=== PATIENT | female | born 1985 | race Caucasian/White ===

== ENCOUNTER 2017-11-09 11:55 | Emergency (ER) | payer OTHER ==
[~2017-11-09] VITALS: Ht 170.2 cm; Wt 88.7 kg
[2017-11-09] MEDS ORDERED: CEPH500 PO (14:41)
[2017-11-09] MEDS ORDERED: Bactrim Ds Tab1 EACH PO (14:41)
== END 2017-11-09 14:48 | disposition home or self-care (01) ==
LOC: ER 11:55
DX: L02.11 Cutaneous abscess of neck (principal); Z87.891 Personal history of nicotine dependence
CPT/HCPCS: 10060; 99283